=== PATIENT | male | born 1975 | race Caucasian/White ===

== ENCOUNTER 2018-11-27 11:24 | Emergency (ER) | payer BC ==
[~2018-11-27] VITALS: Ht 177.8 cm; Wt 108.9 kg
[2018-11-27] MEDS ORDERED: PROTONIX40 M1 PO (11:37)
[2018-11-27] MEDS ORDERED: BUPRENORPHINE1 EACH PO (11:37)
[2018-11-27] MEDS ORDERED: FLOMAX0.4 MG PO (11:38)
[2018-11-27] MEDS ORDERED: SYNTHROID175 MCG PO (11:39)
[2018-11-27 12:14] LABS: ABSOLUTE BASOPHILS 0.1 thou/uL (0.0-0.2); ABSOLUTE EOSINOPHILS 0.1 thou/uL (0.0-0.7); ABSOLUTE LYMPHOCYTES 1.8 thou/uL (0.8-5.3); ABSOLUTE MONOCYTES 0.5 thou/uL (0.0-1.2); EOSINOPHILS 0.8 %; HEMATOCRIT 39.7 % (42.0-52.0); HEMOGLOBIN 13.5 gm/dL (14.0-18.0); LYMPHOCYTES 17.3 %; MCH 28.4 pg (26.0-34.0); MCV 83.7 fL (80.0-100.0); MONOCYTES 4.8 %; MPV 8.6 fl. (7.2-11.1); NUCLEATED RBCS 0 /100WBC; PLATELET COUNT* 188 thou/uL (150-400); POLYS 76.1 %; RBC 4.74 mil/uL (4.50-6.00); RDW-CV 13.5 % (10.5-14.5); WBC 10.6 thou/uL (4.0-11.0)
[2018-11-27 12:28] LABS: CALCIUM 8.6 mg/dL (8.5-10.1); CREATININE 0.8 mg/dL (0.6-1.3); POTASSIUM 4.2 mmol/L (3.5-5.1)
[2018-11-27 12:32] LABS: ALBUMIN 3.3 g/dL (3.4-5.0); TOTAL BILIRUBIN 0.7 mg/dL (<0.1-1.0); TOTAL PROTEIN 6.6 g/dL (6.4-8.2)
[2018-11-27 12:50] VITALS: BP 132/73
== END 2018-11-27 12:50 | disposition home or self-care (01) ==
LOC: M.ERS 11:24
PROVIDERS: Physician Assistant
DX: L02.412 Cutaneous abscess of left axilla (principal); L02.416 Cutaneous abscess of left lower limb; K21.9 Gastro-esophageal reflux disease without esophagitis; E03.9 Hypothyroidism, unspecified